=== PATIENT | female | born 1960 | race Caucasian/White ===

== ENCOUNTER → 2016-06-14 | Outpatient (CLI) | payer MEDICARE, OTHER, SELFPAY ==
[~2016-06-14] VITALS: Ht 152.4 cm; Wt 104.0 kg
[~2016-06-14] MED LIST: ADV500 IH; ALBU8HFA IH; BENZ-26 PO; ESOM20CA31 PO; GABA600T PO; LEVE500T53 PO; MODA100 PO; MODA200T30 PO; MONT10TA21 PO; MULT1CAP32 PO; PANT40TA PO; PRAZ1 PO; PROP10TA10 PO; QUET200T PO; QUET400T PO; TIOT185 IH; TOPI100T9 PO; VENL-68 PO; VIST50 PO
[2016-06-14 12:33] VITALS: BP 123/72
== END | disposition home or self-care (01) ==
LOC: SRCNTR 12:09
PROVIDERS: ATTEND Internal Medicine Critical Care Medicine
DX: G47.33 Obstructive sleep apnea (adult) (pediatric) (principal); J44.1 Chronic obstructive pulmonary disease with (acute) exacerbation; F32.1 Major depressive disorder, single episode, moderate; G40.803 Other epilepsy, intractable, with status epilepticus; F25.9 Schizoaffective disorder, unspecified; E66.01 Morbid (severe) obesity due to excess calories; E03.8 Other specified hypothyroidism
CPT/HCPCS: G0463

== ENCOUNTER → 2016-07-07 | Outpatient (CLI) | payer MEDICARE, MEDICAID, SELFPAY ==
[~2016-07-07] VITALS: Ht 152.4 cm; Wt 102.5 kg
[~2016-07-07] MED LIST changes: -ESOM20CA31 PO
[2016-07-07 13:52] VITALS: BP 138/63
== END | disposition home or self-care (01) ==
LOC: SRCNTR 13:41
PROVIDERS: ATTEND Internal Medicine Critical Care Medicine
DX: G47.33 Obstructive sleep apnea (adult) (pediatric) (principal); J44.1 Chronic obstructive pulmonary disease with (acute) exacerbation; F32.1 Major depressive disorder, single episode, moderate; G40.803 Other epilepsy, intractable, with status epilepticus; F25.9 Schizoaffective disorder, unspecified; E66.01 Morbid (severe) obesity due to excess calories; E03.8 Other specified hypothyroidism; Z83.3 Family history of diabetes mellitus
CPT/HCPCS: G0463

== ENCOUNTER → 2016-07-27 | Outpatient (CLI) | payer MEDICARE, MEDICAID ==
[~2016-07-27] VITALS: Ht 152.4 cm; Wt 99.7 kg
[2016-07-27 13:00] VITALS: BP 110/72
== END | disposition home or self-care (01) ==
LOC: SRCNTR 12:56
PROVIDERS: ATTEND Internal Medicine Critical Care Medicine
DX: G47.33 Obstructive sleep apnea (adult) (pediatric) (principal); J44.1 Chronic obstructive pulmonary disease with (acute) exacerbation; F32.1 Major depressive disorder, single episode, moderate; G40.803 Other epilepsy, intractable, with status epilepticus; F25.9 Schizoaffective disorder, unspecified; E66.01 Morbid (severe) obesity due to excess calories; E03.8 Other specified hypothyroidism; M19.90 Unspecified osteoarthritis, unspecified site
CPT/HCPCS: G0463

== ENCOUNTER → 2016-09-27 | Outpatient (CLI) | payer MEDICARE, MEDICAID ==
[~2016-09-27] VITALS: Ht 152.4 cm; Wt 102.0 kg
[~2016-09-27] MED LIST changes: -MODA100 PO
[2016-09-27 11:31] VITALS: BP 109/83
== END | disposition home or self-care (01) ==
LOC: SRCNTR 11:17
PROVIDERS: ATTEND Internal Medicine Critical Care Medicine
DX: G47.33 Obstructive sleep apnea (adult) (pediatric) (principal); J44.1 Chronic obstructive pulmonary disease with (acute) exacerbation; F32.1 Major depressive disorder, single episode, moderate; G40.803 Other epilepsy, intractable, with status epilepticus; F25.9 Schizoaffective disorder, unspecified; E66.01 Morbid (severe) obesity due to excess calories; E03.8 Other specified hypothyroidism
CPT/HCPCS: G0463

== ENCOUNTER → 2016-11-04 | Outpatient (CLI) | payer MEDICARE, MEDICAID, SELFPAY ==
[~2016-11-04] VITALS: Ht 152.4 cm; Wt 109.4 kg
[2016-11-04 11:22] VITALS: BP 133/76
== END | disposition home or self-care (01) ==
LOC: SRCNTR 11:09
PROVIDERS: ATTEND Internal Medicine Critical Care Medicine
DX: G47.33 Obstructive sleep apnea (adult) (pediatric) (principal); J44.1 Chronic obstructive pulmonary disease with (acute) exacerbation; F32.1 Major depressive disorder, single episode, moderate; G40.803 Other epilepsy, intractable, with status epilepticus; F25.9 Schizoaffective disorder, unspecified; E66.01 Morbid (severe) obesity due to excess calories; E03.8 Other specified hypothyroidism; M19.90 Unspecified osteoarthritis, unspecified site
CPT/HCPCS: G0463

== ENCOUNTER 2017-04-15 12:13 | Inpatient (IN) | payer MEDICARE, OTHER ==
[~2017-04-15] VITALS: Ht 152.4 cm; Wt 107.1 kg
[~2017-04-15 12:13] MED LIST changes: -LEVO750P3 IV; -PRED5 PO; -PROP20 PO
[2017-04-15] MEDS ORDERED: IPRATROPIUM BROMIDE 0.5 MG/2.5 ML NEB SOLUTION NEB ONE ×2 (12:45→14:45)
[2017-04-15] MEDS ORDERED: SODIUM CHLORIDE 0.9% 1,000 ML IV ONE ×2 (12:45)
[2017-04-15] MEDS ORDERED: AZITHROMYCIN 500 MG/NS 250 ML IV ONE (12:45)
[2017-04-15] MEDS ORDERED: CefTRIAXone 1 GM/DEXTROSE 50 ML IV ONE (12:45)
[2017-04-15] MEDS ORDERED: 0.9% SODIUM CHLORIDE 10 ML SYRINGE IVP PRN (12:45)
[2017-04-15] MEDS ORDERED: MethylPREDNISolone SOD SUCC 125 MG/2 ML VIAL IVP ONE (12:45)
[2017-04-15] MEDS ORDERED: ALBUTEROL SULFATE 2.5 MG/0.5 ML NEB SOLUTION NEB ONE ×2 (12:45→14:45)
[2017-04-15] MEDS ORDERED: PROP20 PO (12:46)
[2017-04-15 13:04] LABS: BASOPHILS # (AUTO) 0.03 K/uL (0.00-0.20); BASOPHILS % (AUTO) 0.3 % (0.0-2.0); EOSINOPHILS # (AUTO) 0.01 K/uL (0.00-0.70); EOSINOPHILS % (AUTO) 0.13 % (1.0-6.0); HEMATOCRIT 39.8 % (36-46); HEMOGLOBIN 12.9 g/dL (12.0-16.0); LYMPHOCYTES # (AUTO) 1.5 K/uL (1.0-4.8); LYMPHOCYTES % (AUTO) 13.5 % (22.0-44.0); MEAN CORPUSCULAR HEMOGLOBIN 30.5 pg (26.0-34.0); MEAN CORPUSCULAR HGB CONC 32.5 G/dL (31.0-37.0); MEAN CORPUSCULAR VOLUME 94 fL (80-100); MONOCYTES # (AUTO) 1.3 K/uL (0.1-1.0); MONOCYTES % (AUTO) 11.9 % (2.0-9.0); NEUTROPHILS % (AUTO) 74.2 % (40.0-70.0); PLATELET COUNT (AUTO) 277 K/uL (150-450); RED BLOOD CELL COUNT(AUTO) 4.24 MIL/uL (4.00-5.20); RED CELL DISTRIBUTION WIDTH 12.9 % (11.5-14.5)
[2017-04-15 13:16] LABS: CALCIUM, TOTAL 8.9 mg/dL (8.8-10.5); CREATININE 1.32 mg/dL (0.60-1.30); POTASSIUM 3.4 mmol/L (3.5-5.1)
[2017-04-15 13:17] LABS: INR 1.1 (0.9-1.1); PROTHROMBIN TIME 11.3 SEC (9.4-11.6)
[2017-04-15 13:22] LABS: ALBUMIN 3.3 g/dL (3.4-5.0); BILIRUBIN,TOTAL 0.3 mg/dL (0.1-1.0); TOTAL PROTEIN, SERUM 7.7 g/dL (6.4-8.2)
[2017-04-15 13:24] LABS: LACTIC ACID 1.8 mmol/L (0.4-2.0)
[2017-04-15 13:40] LABS: ABG A-A DIFF O2 298.5 mmHg (10-20.0); ABG BASE EXCESS 3.8 mmol/L (-2.0-3.0); ABG CARBOXYHEMOGLOBIN 0.5 % (0.0-1.5); ABG HCO3 27.1 mmol/L (22.0-26.0); ABG METHEMOGLOBIN 0.2 % (0.0-1.5); ABG OXYGEN CONTENT 16.6 mL/dL (15.0-23.0); ABG OXYGEN SATURATION 95.6 % (95.0-98.0); ABG OXYHEMOGLOBIN 94.9 % (94.0-100.0); ABG PCO2 48 mmHg (35-45); ABG PH 7.396 (7.35-7.450); ABG TOTAL HEMOGLOBIN 12.4 G/dL (12.0-18.0); O2 DEVICE,BLOOD GAS AEROSOL (ROOM AIR); SITE, BLOOD GAS RT RADIAL; SOURCE, BLOOD GAS ARTERIAL; TEMPERATURE, FAHRENHEIT, BG 97.3 FAHREN (96.0-98.6)
[2017-04-15] MEDS ORDERED: MAGNESIUM HYDROXIDE SUSPENSION 30 ML UDCUP PO PRN (13:45)
[2017-04-15] MEDS ORDERED: ACETAMINOPHEN 325 MG TABLET PO PRN (13:45)
[2017-04-15] MEDS ORDERED: IPRATROPIUM BROMIDE 0.5 MG/2.5 ML NEB SOLUTION NEB PRN (13:45)
[2017-04-15] MEDS ORDERED: ALBUTEROL SULFATE 2.5 MG/0.5 ML NEB SOLUTION NEB PRN (13:45)
[2017-04-15 13:46] LABS: INFLUENZA TYPE A NEGATIVE FOR TYPE A (NEGATIVE); INFLUENZA TYPE B NEGATIVE FOR TYPE B (NEGATIVE)
[2017-04-15] MEDS ORDERED: POTASSIUM CHLORIDE 20 MEQ ER TABLET PO PRN (14:00)
[2017-04-15] MEDS ORDERED: POTASSIUM CHL 10 MEQ/WATER 50 ML IV PRN (14:00)
[2017-04-15 14:04] LABS: THYROID STIMULATING HORMONE 0.21 uIU/mL (0.36-3.74)
[2017-04-15] MEDS: SODIUM CHLORIDE 0.9% 1,000 ML IV SCH (14:52)
[2017-04-15 15:00] LABS: APPEARANCE,URINE CLEAR (CLEAR); BILIRUBIN,URINE NEGATIVE (NEGATIVE); GLUCOSE, URINE (UA) NEGATIVE (NEGATIVE); KETONES,URINE NEGATIVE (NEGATIVE); LEUKOCYTE ESTERASE ,URINE NEGATIVE (NEGATIVE); NITRATE,URINE POSITIVE (NEGATIVE); OCCULT BLOOD,URINE NEGATIVE (NEGATIVE); PROTEIN,URINE NEGATIVE (NEGATIVE); UROBILINOGEN,URINE 0.2 mg/dL (<=1.0)
[2017-04-15 15:02] LABS: AMPHET/METH SCREEN,URINE NEGATIVE (NEGATIVE); BARBITURATE SCREEN, URINE NEGATIVE (NEGATIVE); BENZODIAZEPINES SCREEN,URINE NEGATIVE (NEGATIVE); CANNABINOID SCREEN,URINE NEGATIVE (NEGATIVE); COCAINE SCREEN,URINE NEGATIVE (NEGATIVE); METHADONE SCREEN, URINE NEGATIVE (NEGATIVE); OPIATE SCREEN,URINE NEGATIVE (NEGATIVE)
[2017-04-15 15:04] LABS: PHENCYCLIDINE SCREEN,URINE NEGATIVE (NEGATIVE)
[2017-04-15 16:03] LABS: BACTERIA,URINE Many /HPF (None Seen); RBC,URINE None Seen /HPF (0-2); WBC,URINE 0-2 /HPF (0-5)
[2017-04-15] MEDS: HEPARIN SODIUM,PORCINE 5,000 UNITS/ML VIAL SQ SCH (16:06)
[2017-04-15 16:39] VITALS: BP 122/73
[2017-04-15] MEDS: MethylPREDNISolone SOD SUCC 125 MG/2 ML VIAL IVP SCH (17:05)
[2017-04-15 19:28] VITALS: BP 103/51
[2017-04-15] MEDS: LevETIRAcetam 500 MG TABLET PO SCH (20:15)
[2017-04-15] MEDS: DOCUSATE SODIUM 100 MG CAPSULE PO SCH (20:15)
[2017-04-15] MEDS: HYDROCODONE/CHLORPHEN POLIS 10-8 MG/5 ML ORAL.SYG PO SCH (20:15)
[2017-04-15] MEDS: BUDESONIDE 0.5 MG/2 ML NEB SOLUTION NEB SCH (21:56)
[2017-04-15 23:35] VITALS: BP 103/59
[2017-04-16] MEDS: MethylPREDNISolone SOD SUCC 125 MG/2 ML VIAL IVP SCH ×5 (00:03→23:52)
[2017-04-16] MEDS: BENZONATATE 100 MG CAPSULE PO SCH ×4 (00:04→23:51)
[2017-04-16] MEDS: HEPARIN SODIUM,PORCINE 5,000 UNITS/ML VIAL SQ SCH ×4 (00:04→23:52)
[2017-04-16] MEDS: SODIUM CHLORIDE 0.9% 1,000 ML IV SCH (00:05)
[2017-04-16 04:07] VITALS: BP 138/93
[2017-04-16 07:43] VITALS: BP 122/83
[2017-04-16] MEDS: BUDESONIDE 0.5 MG/2 ML NEB SOLUTION NEB SCH ×2 (07:48→19:52)
[2017-04-16 08:15] LABS: CALCIUM, TOTAL 8.5 mg/dL (8.8-10.5); POTASSIUM 4.8 mmol/L (3.5-5.1)
[2017-04-16] MEDS: HYDROCODONE/CHLORPHEN POLIS 10-8 MG/5 ML ORAL.SYG PO SCH ×2 (09:02→20:12)
[2017-04-16] MEDS: LevETIRAcetam 500 MG TABLET PO SCH ×2 (09:03→20:12)
[2017-04-16] MEDS: DOCUSATE SODIUM 100 MG CAPSULE PO SCH ×2 (09:03→20:12)
[2017-04-16] MEDS: PANTOPRAZOLE SODIUM 40 MG DR TABLET PO SCH (09:03)
[2017-04-16 11:29] VITALS: BP 139/79
[2017-04-16] MEDS: CefTRIAXone 1 GM/DEXTROSE 50 ML IV SCH (12:05)
[2017-04-16] MEDS: AZITHROMYCIN 500 MG/NS 250 ML IV SCH (12:57)
[2017-04-16 16:21] VITALS: BP 131/78
[2017-04-16 19:34] VITALS: BP 146/80
[2017-04-16 23:45] VITALS: BP 154/88
[2017-04-17 04:34] VITALS: BP 151/90
[2017-04-17] MEDS: MethylPREDNISolone SOD SUCC 125 MG/2 ML VIAL IVP SCH (05:15)
[2017-04-17 07:12] VITALS: BP 143/89
[2017-04-17] MEDS: BUDESONIDE 0.5 MG/2 ML NEB SOLUTION NEB SCH ×2 (07:21→20:15)
[2017-04-17] MEDS: PANTOPRAZOLE SODIUM 40 MG DR TABLET PO SCH (09:15)
[2017-04-17] MEDS: PredniSONE 20 MG TABLET PO SCH (09:15)
[2017-04-17] MEDS: HYDROCODONE/CHLORPHEN POLIS 10-8 MG/5 ML ORAL.SYG PO SCH ×2 (09:15→20:43)
[2017-04-17] MEDS: BENZONATATE 100 MG CAPSULE PO SCH ×2 (09:15→15:55)
[2017-04-17] MEDS: LevETIRAcetam 500 MG TABLET PO SCH ×2 (09:15→20:43)
[2017-04-17] MEDS: DOCUSATE SODIUM 100 MG CAPSULE PO SCH ×2 (09:16→20:43)
[2017-04-17] MEDS: HEPARIN SODIUM,PORCINE 5,000 UNITS/ML VIAL SQ SCH ×2 (09:16→15:56)
[2017-04-17 11:03] VITALS: BP 147/90
[2017-04-17] MEDS ORDERED: SODIUM CHLORIDE 0.9% 250 ML IV ONE (12:00)
[2017-04-17] MEDS: CefTRIAXone 1 GM/DEXTROSE 50 ML IV SCH (12:03)
[2017-04-17] MEDS: AZITHROMYCIN 500 MG/NS 250 ML IV SCH (13:16)
[2017-04-17 15:16] VITALS: BP 157/81
[2017-04-17 19:45] VITALS: BP 152/87
[2017-04-17 23:55] VITALS: BP 155/84
[2017-04-18] MEDS: HEPARIN SODIUM,PORCINE 5,000 UNITS/ML VIAL SQ SCH ×2 (00:49→08:31)
[2017-04-18] MEDS: BENZONATATE 100 MG CAPSULE PO SCH ×2 (00:49→08:31)
[2017-04-18 03:57] VITALS: BP 157/89
[2017-04-18 07:36] VITALS: BP 135/88
[2017-04-18] MEDS: HYDROCODONE/CHLORPHEN POLIS 10-8 MG/5 ML ORAL.SYG PO SCH (08:30)
[2017-04-18] MEDS: DOCUSATE SODIUM 100 MG CAPSULE PO SCH (08:30)
[2017-04-18] MEDS: PANTOPRAZOLE SODIUM 40 MG DR TABLET PO SCH (08:30)
[2017-04-18] MEDS: PredniSONE 20 MG TABLET PO SCH (08:31)
[2017-04-18] MEDS: LevETIRAcetam 500 MG TABLET PO SCH (08:34)
[2017-04-18] MEDS: BUDESONIDE 0.5 MG/2 ML NEB SOLUTION NEB SCH (09:58)
[2017-04-18 11:25] VITALS: BP 123/76
[2017-04-18] MEDS ORDERED: CefTRIAXone SODIUM 1 GM/VIAL IVP SCH (12:00)
[2017-04-18] MEDS: AZITHROMYCIN 500 MG/NS 250 ML IV SCH (12:26)
[2017-04-18] MEDS ORDERED: LEVO750P3 IV (12:50)
[2017-04-18] MEDS ORDERED: PRED5 PO (12:51)
== END 2017-04-18 15:30 | disposition home or self-care (01) | DRG 314 ==
LOC: EMS 12:15 → 5S 16:08
PROVIDERS: ADMIT Internal Medicine; ATTEND Internal Medicine
PROC: 5A09457 Assistance with Respiratory Ventilation, 24-96 Consecutive Hours, Continuous Positive Airway Pressure (ICD-10-PCS; principal; 2017-04-15)
DX: I95.9 Hypotension, unspecified (principal); G93.41 Metabolic encephalopathy; J96.01 Acute respiratory failure with hypoxia; J18.9 Pneumonia, unspecified organism; N17.9 Acute kidney failure, unspecified; J44.0 Chronic obstructive pulmonary disease with (acute) lower respiratory infection; J44.1 Chronic obstructive pulmonary disease with (acute) exacerbation; Z68.42 Body mass index [BMI] 45.0-49.9, adult; E66.01 Morbid (severe) obesity due to excess calories; F20.9 Schizophrenia, unspecified; Z99.81 Dependence on supplemental oxygen; Z96.652 Presence of left artificial knee joint; I10 Essential (primary) hypertension; F32.9 Major depressive disorder, single episode, unspecified; M19.90 Unspecified osteoarthritis, unspecified site; G47.33 Obstructive sleep apnea (adult) (pediatric); E03.9 Hypothyroidism, unspecified; F41.9 Anxiety disorder, unspecified; Z90.49 Acquired absence of other specified parts of digestive tract; Z83.3 Family history of diabetes mellitus; Z82.49 Family history of ischemic heart disease and other diseases of the circulatory system; Z80.0 Family history of malignant neoplasm of digestive organs; Z82.5 Family history of asthma and other chronic lower respiratory diseases; Z85.038 Personal history of other malignant neoplasm of large intestine
CPT/HCPCS: 82805; 83605; 84443; 87040; 87086; 87804; 93005; 93306; 93971; 94640; 94644; 94645; 94660; 96365; 96368; 96375; 97162; 99291; J0456; J0696; J1644; J2930; J7030; J7050

== ENCOUNTER → 2017-04-15 | Outpatient (CLI) | payer MEDICARE, MEDICAID, SELFPAY ==
[~2017-04-15] MED LIST changes: -BENZ-26 PO; +BENZ-51 PO; +LEVO750P3 IV; +MODA200T16 PO; -MODA200T30 PO; +PRED5 PO; +PROP20 PO; +TOPI100T31 PO; -TOPI100T9 PO
[2017-04-15 11:41] VITALS: BP 78/69
== END | disposition home or self-care (01) ==
LOC: SRCNTR 11:19
PROVIDERS: ATTEND Internal Medicine Critical Care Medicine
DX: J96.01 Acute respiratory failure with hypoxia (principal); G47.33 Obstructive sleep apnea (adult) (pediatric); N17.9 Acute kidney failure, unspecified; J44.1 Chronic obstructive pulmonary disease with (acute) exacerbation; E66.01 Morbid (severe) obesity due to excess calories; E03.9 Hypothyroidism, unspecified; I95.9 Hypotension, unspecified
CPT/HCPCS: G0463

== ENCOUNTER → 2017-05-03 | Outpatient (CLI) | payer MEDICARE, OTHER ==
[~2017-05-03] VITALS: Ht 152.4 cm; Wt 110.7 kg
[~2017-05-03] MED LIST changes: +LEVO750P3 IV; +PRED5 PO; -PROP10TA10 PO; +PROP20 PO; -QUET200T PO
[2017-05-03 11:01] VITALS: BP 82/43
== END | disposition home or self-care (01) ==
LOC: SRCNTR 10:45
PROVIDERS: ATTEND Internal Medicine Critical Care Medicine
DX: G47.33 Obstructive sleep apnea (adult) (pediatric) (principal); J44.1 Chronic obstructive pulmonary disease with (acute) exacerbation; F32.1 Major depressive disorder, single episode, moderate; G40.803 Other epilepsy, intractable, with status epilepticus; F25.9 Schizoaffective disorder, unspecified; E66.01 Morbid (severe) obesity due to excess calories; E03.8 Other specified hypothyroidism
CPT/HCPCS: G0463

== ENCOUNTER → 2017-05-31 | Outpatient (CLI) | payer MEDICARE, MEDICAID, SELFPAY ==
[2017-05-31 22:10] LABS: HEMOGLOBIN A1C 6.7 % (4.5-6.2)
[2017-05-31 22:29] LABS: CHOL/HDL RATIO 3.2 (3.9-5.7)
== END | disposition home or self-care (01) ==
LOC: LABMN 11:00
PROVIDERS: ATTEND Psychiatry & Neurology Psychiatry
DX: F25.9 Schizoaffective disorder, unspecified (principal); R79.89 Other specified abnormal findings of blood chemistry
CPT/HCPCS: 83036

== ENCOUNTER → 2017-07-07 | Outpatient (CLI) | payer MEDICARE, OTHER ==
[~2017-07-07] VITALS: Ht 152.4 cm; Wt 106.5 kg
[~2017-07-07] MED LIST changes: -PROP20 PO; +PROP20TA18 PO
[2017-07-07 12:26] VITALS: BP 97/76
== END | disposition home or self-care (01) ==
LOC: SRCNTR 12:05
PROVIDERS: ATTEND Internal Medicine Critical Care Medicine
DX: G47.33 Obstructive sleep apnea (adult) (pediatric) (principal); J44.1 Chronic obstructive pulmonary disease with (acute) exacerbation; F32.1 Major depressive disorder, single episode, moderate; F25.9 Schizoaffective disorder, unspecified; E66.01 Morbid (severe) obesity due to excess calories; E03.8 Other specified hypothyroidism; G40.803 Other epilepsy, intractable, with status epilepticus; R19.7 Diarrhea, unspecified
CPT/HCPCS: G0463

== ENCOUNTER → 2017-10-20 | Outpatient (CLI) | payer MEDICARE, OTHER ==
[~2017-10-20] VITALS: Ht 147.3 cm; Wt 108.0 kg
[~2017-10-20] MED LIST changes: +HYDR50CA10 PO; -VIST50 PO
[2017-10-20 13:42] VITALS: BP 123/70
== END | disposition home or self-care (01) ==
LOC: SRCNTR 13:38
PROVIDERS: ATTEND Internal Medicine Critical Care Medicine
DX: G47.33 Obstructive sleep apnea (adult) (pediatric) (principal); J44.1 Chronic obstructive pulmonary disease with (acute) exacerbation; F32.1 Major depressive disorder, single episode, moderate; F25.9 Schizoaffective disorder, unspecified; G40.803 Other epilepsy, intractable, with status epilepticus; E66.01 Morbid (severe) obesity due to excess calories; E03.8 Other specified hypothyroidism
CPT/HCPCS: G0463

== ENCOUNTER → 2018-05-02 | Outpatient (CLI) | payer MEDICARE, OTHER, SELFPAY ==
[~2018-05-02] VITALS: Ht 147.3 cm; Wt 101.0 kg
[~2018-05-02] MED LIST changes: -LEVO750P3 IV; +LEVO750P7 IV
[2018-05-02 13:14] VITALS: BP 111/70
== END | disposition home or self-care (01) ==
LOC: SRCNTR 13:10
PROVIDERS: ATTEND Internal Medicine Critical Care Medicine
DX: G47.33 Obstructive sleep apnea (adult) (pediatric) (principal); F32.1 Major depressive disorder, single episode, moderate; J44.1 Chronic obstructive pulmonary disease with (acute) exacerbation; G40.803 Other epilepsy, intractable, with status epilepticus; F25.9 Schizoaffective disorder, unspecified; E66.01 Morbid (severe) obesity due to excess calories; E03.8 Other specified hypothyroidism
CPT/HCPCS: G0463

== ENCOUNTER → 2018-05-03 | Outpatient (CLI) | payer MEDICARE, OTHER ==
[2018-05-12 19:40] LABS: HEMOGLOBIN A1C 5.6 % (4.5-6.2)
== END | disposition home or self-care (01) ==
LOC: LABMN 12:00
PROVIDERS: ATTEND Psychiatry & Neurology Psychiatry
DX: F25.9 Schizoaffective disorder, unspecified (principal); I10 Essential (primary) hypertension; E11.9 Type 2 diabetes mellitus without complications; Z79.52 Long term (current) use of systemic steroids; Z83.3 Family history of diabetes mellitus
CPT/HCPCS: 82947; 83036

== ENCOUNTER → 2018-06-30 | Outpatient (CLI) | payer MEDICARE, OTHER, SELFPAY ==
[~2018-06-30] VITALS: Ht 147.3 cm; Wt 107.0 kg
[2018-06-30 13:24] VITALS: BP 132/76
== END | disposition home or self-care (01) ==
LOC: SRCNTR 13:05
PROVIDERS: ATTEND Internal Medicine Critical Care Medicine
DX: J44.1 Chronic obstructive pulmonary disease with (acute) exacerbation (principal); G47.33 Obstructive sleep apnea (adult) (pediatric); F32.1 Major depressive disorder, single episode, moderate; G40.803 Other epilepsy, intractable, with status epilepticus; F25.9 Schizoaffective disorder, unspecified; E66.01 Morbid (severe) obesity due to excess calories; E03.8 Other specified hypothyroidism; M19.90 Unspecified osteoarthritis, unspecified site
CPT/HCPCS: G0463

== ENCOUNTER → 2019-03-21 | Outpatient (CLI) | payer MEDICARE, OTHER ==
[~2019-03-21] VITALS: Ht 154.9 cm; Wt 106.0 kg
[~2019-03-21] MED LIST changes: -HYDR50CA10 PO; +HYDR50CA9 PO
[2019-03-21 10:21] VITALS: BP 109/55
== END | disposition home or self-care (01) ==
LOC: SRCNTR 10:20
PROVIDERS: ATTEND Internal Medicine Critical Care Medicine
DX: G47.33 Obstructive sleep apnea (adult) (pediatric) (principal); J45.909 Unspecified asthma, uncomplicated; F32.9 Major depressive disorder, single episode, unspecified; M19.90 Unspecified osteoarthritis, unspecified site; E66.01 Morbid (severe) obesity due to excess calories
CPT/HCPCS: G0463

== ENCOUNTER → 2020-05-28 | Outpatient (CLI) | payer MEDICARE, OTHER ==
[~2020-05-28] VITALS: Ht 147.3 cm; Wt 113.0 kg
[~2020-05-28] MED LIST changes: +MONT-35 PO; -MONT10TA21 PO; +PRED-409 PO; -PRED5 PO
[2020-05-28 10:43] VITALS: BP 122/61
== END | disposition home or self-care (01) ==
LOC: SRCNTR 10:01
PROVIDERS: ATTEND Internal Medicine Critical Care Medicine
DX: J44.1 Chronic obstructive pulmonary disease with (acute) exacerbation (principal); G47.33 Obstructive sleep apnea (adult) (pediatric); G40.803 Other epilepsy, intractable, with status epilepticus; F25.9 Schizoaffective disorder, unspecified; F32.1 Major depressive disorder, single episode, moderate; E03.8 Other specified hypothyroidism; E66.01 Morbid (severe) obesity due to excess calories
CPT/HCPCS: G0463

== ENCOUNTER → 2020-10-30 | Outpatient (CLI) | payer MEDICARE, OTHER, SELFPAY ==
[~2020-10-30] VITALS: Ht 152.4 cm; Wt 109.0 kg
[~2020-10-30] MED LIST changes: -BENZ-51 PO; +BENZ-70 PO
[2020-10-30 12:06] VITALS: BP 135/67
== END | disposition home or self-care (01) ==
LOC: SRCNTR 11:26
PROVIDERS: ATTEND Internal Medicine Critical Care Medicine
DX: G47.33 Obstructive sleep apnea (adult) (pediatric) (principal); J44.1 Chronic obstructive pulmonary disease with (acute) exacerbation; F32.1 Major depressive disorder, single episode, moderate; G40.803 Other epilepsy, intractable, with status epilepticus; F25.9 Schizoaffective disorder, unspecified; E66.01 Morbid (severe) obesity due to excess calories; E03.8 Other specified hypothyroidism; Z79.899 Other long term (current) drug therapy; Z88.8 Allergy status to other drugs, medicaments and biological substances; Z86.69 Personal history of other diseases of the nervous system and sense organs; Z96.652 Presence of left artificial knee joint; Z90.49 Acquired absence of other specified parts of digestive tract; Z98.890 Other specified postprocedural states
CPT/HCPCS: G0463

== ENCOUNTER 2021-11-23 12:36 | Emergency (ER) | payer MEDICARE, OTHER ==
[~2021-11-23] VITALS: Ht 154.9 cm; Wt 95.0 kg
[~2021-11-23 12:36] MED LIST changes: -METF-1211 PO
[2021-11-23] MEDS ORDERED: METF-1211 PO (13:13)
[2021-11-23 13:31] LABS: GLUCOMETER DEV NAME(LOC) ERT.5; GLUCOSE,POINT OF CARE 93 MG/DL (70-110)
[2021-11-23 15:26] LABS: BASOPHILS % (AUTO) 0.4 % (0.0-2.0); EOSINOPHILS % (AUTO) 5.5 % (1.0-6.0); HEMATOCRIT 32.2 % (36-46); HEMOGLOBIN 10.7 g/dL (12.0-16.0); LYMPHOCYTES # (AUTO) 1.5 K/uL (1.0-4.8); LYMPHOCYTES % (AUTO) 27.6 % (22.0-44.0); MEAN CORPUSCULAR HEMOGLOBIN 31.1 pg (26.0-34.0); MEAN CORPUSCULAR HGB CONC 33.2 G/dL (31.0-37.0); MEAN CORPUSCULAR VOLUME 94 fL (80-100); MONOCYTES # (AUTO) 0.8 K/uL (0.1-1.0); MONOCYTES % (AUTO) 14.7 % (2.0-9.0); NEUTROPHILS # (AUTO) 2.8 K/uL (1.8-7.7); NEUTROPHILS % (AUTO) 51.8 % (40.0-70.0); PLATELET COUNT (AUTO) 274 K/uL (150-450); RED BLOOD CELL COUNT(AUTO) 3.44 MIL/uL (4.00-5.20); RED CELL DISTRIBUTION WIDTH 13.1 % (11.5-14.5)
[2021-11-23 15:33] LABS: ANION GAP 6 mmol/L (8-16); CALCIUM, TOTAL 8.8 mg/dL (8.8-10.5); CARBON DIOXIDE 32 mmol/L (22-29); CHLORIDE 104 mmol/L (98-107); CREATININE 0.86 mg/dL (0.60-1.30); GLUCOSE,RANDOM 104 mg/dL (70-110); SODIUM SERUM 142 mmol/L (136-145); UREA NITROGEN, BLOOD 12 mg/dL (7-18)
[2021-11-23 15:34] LABS: GLOMERULAR FILTR. RATE CALC > 60 mL/min (>60)
[2021-11-23 15:39] LABS: ALANINE AMINOTRANSFERASE 29 U/L (12-78); ALBUMIN 3.1 g/dL (3.4-5.0); ALKALINE PHOSPHATASE 104 U/L (46-116); ASPARTATE AMINOTRANSFERASE 29 U/L (15-37); BILIRUBIN,TOTAL 0.3 mg/dL (0.1-1.0); TOTAL PROTEIN, SERUM 6.8 g/dL (6.4-8.2)
[2021-11-23 15:47] LABS: APPEARANCE,URINE CLEAR (CLEAR); BILIRUBIN,URINE NEGATIVE (NEGATIVE); GLUCOSE, URINE (UA) NEGATIVE (NEGATIVE); KETONES,URINE NEGATIVE (NEGATIVE); LEUKOCYTE ESTERASE ,URINE NEGATIVE (NEGATIVE); NITRATE,URINE NEGATIVE (NEGATIVE); OCCULT BLOOD,URINE NEGATIVE (NEGATIVE); PROTEIN,URINE TRACE mg/dL (NEGATIVE); UROBILINOGEN,URINE <=1.0 mg/dL (<=1.0)
[2021-11-23 22:34] VITALS: BP 137/77
== END 2021-11-24 00:02 | disposition home or self-care (01) ==
LOC: EMS 12:36
DX: S60.012A Contusion of left thumb without damage to nail, initial encounter (principal); S80.02XA Contusion of left knee, initial encounter; F41.9 Anxiety disorder, unspecified; J45.909 Unspecified asthma, uncomplicated; F32.A Depression, unspecified; F20.9 Schizophrenia, unspecified; Z85.038 Personal history of other malignant neoplasm of large intestine; Z90.49 Acquired absence of other specified parts of digestive tract; Z96.652 Presence of left artificial knee joint; Z98.890 Other specified postprocedural states; Z88.8 Allergy status to other drugs, medicaments and biological substances; W01.0XXA Fall on same level from slipping, tripping and stumbling without subsequent striking against object, initial encounter; Y93.89 Activity, other specified; Y92.009 Unspecified place in unspecified non-institutional (private) residence as the place of occurrence of the external cause; Y99.8 Other external cause status
CPT/HCPCS: 70450; 80053; 81003; 82962; 85025; 99285

== ENCOUNTER → 2021-11-23 | Outpatient (CLI) | payer MEDICARE, OTHER ==
[~2021-11-23] MED LIST changes: +HYDR50CA7 PO; -HYDR50CA9 PO; +LEVE500T20 PO; -LEVE500T53 PO; +METF-1211 PO; -PRED-409 PO; +PRED-549 PO
== END | disposition home or self-care (01) ==
LOC: SRCNTR 09:56
PROVIDERS: ATTEND Internal Medicine Pulmonary Disease
DX: G47.33 Obstructive sleep apnea (adult) (pediatric) (principal); J44.1 Chronic obstructive pulmonary disease with (acute) exacerbation; E03.9 Hypothyroidism, unspecified; F32.A Depression, unspecified; R56.9 Unspecified convulsions; F25.9 Schizoaffective disorder, unspecified; E66.01 Morbid (severe) obesity due to excess calories
CPT/HCPCS: G0463

== ENCOUNTER → 2022-02-19 | Outpatient (CLI) | payer MEDICARE, OTHER ==
[~2022-02-19] MED LIST changes: -BENZ-70 PO; -LEVO750P7 IV; +METF-1211 PO
[2022-02-19 15:49] LABS: HEMOGLOBIN A1C 7.1 % (3.8-5.6)
[2022-02-19 15:56] LABS: CHOL/HDL RATIO 1.8 (3.9-5.7)
== END | disposition home or self-care (01) ==
LOC: LABMN 14:18
PROVIDERS: ATTEND Psychiatry & Neurology Psychiatry
DX: F25.0 Schizoaffective disorder, bipolar type (principal); E11.9 Type 2 diabetes mellitus without complications
CPT/HCPCS: 80061; 82947; 83036

== ENCOUNTER → 2022-08-12 | Outpatient (CLI) | payer MEDICARE, OTHER ==
[~2022-08-12] MED LIST changes: +ALBU18HF12 IH; -ALBU8HFA IH
[2022-08-12 16:06] LABS: HEMOGLOBIN A1C 6.8 % (3.8-5.6)
[2022-08-12 16:27] LABS: CHOL/HDL RATIO 1.9 (3.9-5.7)
== END | disposition home or self-care (01) ==
LOC: LABMN 14:12
PROVIDERS: ATTEND Psychiatry & Neurology Psychiatry
DX: F25.1 Schizoaffective disorder, depressive type (principal); Z79.899 Other long term (current) drug therapy
CPT/HCPCS: 80061; 82947; 83036

== ENCOUNTER 2022-11-04 13:09 | Emergency (ER) | payer MEDICARE, OTHER ==
[~2022-11-04] VITALS: Ht 152.4 cm; Wt 90.0 kg
[2022-11-04 13:30] VITALS: TEMP 98.3
[2022-11-04] MEDS ORDERED: MONT-35 PO (13:40)
[2022-11-04] MEDS ORDERED: FLUT1BLS3 PUFF (13:40)
[2022-11-04] MEDS ORDERED: DULO20CA71 PO (13:40)
[2022-11-04] MEDS ORDERED: ATOR40TA28 PO (13:40)
[2022-11-04] MEDS ORDERED: APIX5TAB PO (13:40)
[2022-11-04 13:41] LABS: GLUCOMETER DEV NAME(LOC) ERT.5
[2022-11-04 14:47] VITALS: BP 128/62; PULSE 96; RESP 20
== END 2022-11-04 15:22 | disposition home or self-care (01) ==
LOC: EMS 13:24
DX: J45.909 Unspecified asthma, uncomplicated (principal); F41.9 Anxiety disorder, unspecified; F32.A Depression, unspecified; F20.9 Schizophrenia, unspecified; C80.1 Malignant (primary) neoplasm, unspecified; Z90.49 Acquired absence of other specified parts of digestive tract; Z88.8 Allergy status to other drugs, medicaments and biological substances
CPT/HCPCS: 82962; 99283

== ENCOUNTER → 2023-08-18 | Outpatient (CLI) | payer MEDICARE, OTHER, SELFPAY ==
[~2023-08-18] VITALS: Ht 144.8 cm; Wt 94.0 kg
[~2023-08-18] MED LIST changes: +APIX5TAB PO; +ATOR40TA28 PO; +DULO20CA71 PO; +FLUT1BLS15 IH; +FLUT1BLS3 PUFF; -GABA600T PO; -HYDR50CA7 PO; -LEVE500T20 PO; -MODA200T16 PO; -MULT1CAP32 PO; +PANT-31 PO; -PRAZ1 PO; -PRED-549 PO; -PROP20TA18 PO; -TIOT185 IH
[2023-08-18 11:23] VITALS: BP 129/91; PULSE 91; RESP 18; TEMP 98.2; O2SAT 97
== END | disposition home or self-care (01) ==
LOC: SRCNTR 10:58
PROVIDERS: ATTEND Internal Medicine Pulmonary Disease
DX: G47.33 Obstructive sleep apnea (adult) (pediatric) (principal); J44.9 Chronic obstructive pulmonary disease, unspecified; I26.99 Other pulmonary embolism without acute cor pulmonale; R56.9 Unspecified convulsions; E03.9 Hypothyroidism, unspecified; F32.A Depression, unspecified; E66.01 Morbid (severe) obesity due to excess calories; F20.9 Schizophrenia, unspecified; Z79.899 Other long term (current) drug therapy; Z88.8 Allergy status to other drugs, medicaments and biological substances
CPT/HCPCS: G0463; Z7500